=== PATIENT | female | born 1975 | race Caucasian/White ===

== ENCOUNTER 2017-04-08 11:03 | Inpatient (IN) ==
--- NOTE | 2017-04-08 08:49 | Anesthesia Evaluation PreOp ---
Date of Encounter: 04/08/17 Time of Encounter: 11:43 - Past History Planned Operation: Open hiatal hernia repair Rona Cardiac History: Arrhythmia (Palpitations) Pulmonary History: Smoker [employer] History: Denies Any Significant HX Other Medical History: Other (Hiatal hernia, Bipolar disorder, ITP, post splenectomy, thrombocytosis) Anesthesia History: No Prior Anesthetic Complications, Past Anesthesia Alcohol Use: none Drug use: none Medications and Allergies Omeprazole [PriLOSEC] 20 mg PO DAILY #30 cap 02/28/17 [Rx] Buspirone HCl [Buspar] 30 mg PO DAILY 03/22/17 [History] Ibuprofen [Motrin] 200 mg PO Q4HR PRN 03/22/17 [History] [place] Carbonate 600 mg PO BID 03/22/17 [History] - Meds/Allergy Pre-op Review Medications Reviewed: Yes Allergies Reviewed: Yes Beta Blockers on Current Med List: No Anesthesia Results - Labs Laboratory Tests 04/06/17 09:12 WBC 17.4 H Hgb 13.7 Hct 41.3 Plt Count 611 H Laboratory Tests 02/28/17 02/28/17 08:41 09:14 PT 10.5 INR 1.0 APTT 25.9 L Sodium 137 Potassium 4.0 BUN 9 Creatinine 0.73 Glucose 95 Calcium 9.8 Albumin 3.5 Globulin 4.0 H Anesthesia Exam Vital Signs/O2 Sat, Most Current Temp Pulse Resp BP Pulse Ox 98.2 F 88 18 125/82 96 04/08/17 11:31 04/08/17 11:31 04/08/17 11:31 04/08/17 11:31 04/08/17 11:31 Height: 5'2" Weight: 80 Kg BMI:32 NPO (# of Hours): >8 - HEENT Mallampati: II Teeth: Missing, Poor dentition Oral Opening: Greater than 3 - Cardiac Rhythm: Regular - Pulmonary Breath Sounds: bilateral Rhonchi Anesthesia Assess/Plan ASA Score: 3 Modified [place] Scale for Level of Consciousness: Anixous, agitated or restless Anesthetic Plan: General Monitoring Plan: Standard Monitors, CVC (Possible) Recovery Plan: PACU Anes Supervising Prov Stmt: I have participated in the evaluation of this patient. Patient informed and consented. Risks, benefits, and alternatives discussed. Patient wishes to proceed.
[2017-04-08] MEDS ORDERED: Scopolamine Patch 1.5 MG PATCH.TD72 TD ONE (11:49)
--- NOTE | 2017-04-08 11:52 | History & Physical Report ---
Date of Encounter: 04/08/17 Time of Encounter: 11:50 24 Hour HP Update - Instructions Instructions: If the History and Physical is less than 30 days old and was completed prior to A.M. admission and or procedure and has NOT been updated on calendar day of procedure please complete this update prior to performing procedure. - Update Patient reports changes in Medical Condition: No Changes in examination, assessment, or condition: No Changes in Medication: No Preop tests/diagnostics Reviewed: Yes Surgery Remains Indicated: Yes Consent for Planned Operative Procedure(s) Verified: Yes - Pre-Operative Checklist Preoperative Checklist Indicated: Yes Prophylactic Antibiotic Ordered: Yes Home Medications Include Beta Ronal: No Is VTE Prophylaxis Indicated?: Yes
[2017-04-08] MEDS ORDERED: Albuterol 2.5 MG/3 ML NEBULIZER IH ONE (11:57)
[2017-04-08] MEDS ORDERED: Lidocaine -MPF 1% 2 ML VIAL ID ONE (11:57)
[2017-04-08] MEDS ORDERED: CeFAZolin Syr 2,000MG/20 ML 2,000 MG/20 ML SYRINGE IVPB ONE (11:57)
[2017-04-08] MEDS ORDERED: *HR* Rocuronium Bromide 50 MG/5 ML VIAL ONE (12:00)
[2017-04-08] MEDS ORDERED: *HR* Propofol 200 MG/20 ML VIAL IVP ONE (12:00)
[2017-04-08] MEDS ORDERED: Dexamethasone 4 MG/ML VIAL ONE (12:00)
[2017-04-08] MEDS ORDERED: *HR* Midazolam HCl 2 MG/2 ML VIAL ONE (12:00)
[2017-04-08] MEDS ORDERED: *HR* Succinylcholine 200 MG/10 ML VIAL IVP ONE (12:00)
[2017-04-08] MEDS ORDERED: Lidocaine -MPF 4% 5 ML AMPUL ONE (12:00)
[2017-04-08] MEDS ORDERED: Lidocaine -MPF 2% 2 ML VIAL ONE (12:00)
[2017-04-08] MEDS ORDERED: Ondansetron 4 MG/2 ML VIAL ONE (12:00)
[2017-04-08] MEDS ORDERED: *HR* Phenylephrine 10 MG/ML VIAL ONE (12:00)
[2017-04-08] MEDS ORDERED: *HR* FentaNYL (PF) 100 MCG/2 ML VIAL ONE ×3 (12:00→13:37)
[2017-04-08] MEDS ORDERED: Albuterol 2.5 MG/3 ML NEBULIZER ONE (12:03)
[2017-04-08] MEDS ORDERED: CefOXitin 1,000 MG VIAL ONE (12:05)
[2017-04-08] MEDS: Ringers Solution, Lactated 1,000 ML IVC SCH ×2 (12:48→14:12)
[2017-04-08] MEDS ORDERED: *HR* HYDROmorphone 2 MG/ML SYRINGE ONE (13:28)
[2017-04-08] MEDS ORDERED: Acetaminophen IV 1,000 MG/100 ML INFUS..BTL ONE (14:07)
[2017-04-08] MEDS ORDERED: Neostigmine Methylsulfate 3 MG/3 ML SYRINGE ONE (14:35)
[2017-04-08] MEDS ORDERED: Ketorolac 30 MG/ML VIAL ONE (14:38)
[2017-04-08] MEDS ORDERED: Bupivacaine/EPI 1:200k 0.5%PF 10 ML VIAL ONE (14:43)
--- NOTE | 2017-04-08 15:13 | Operative Note ---
Date of procedure: 04/08/17 Pre-op diagnosis: Hiatal hernia, status post splenectomy Post-op diagnosis: same Procedure: Open repair of hiatal hernia. Open Rona fundoplication. Anesthesia: LADARIUS Surgeon: Zane Canchola Estimated blood loss (cc): 50 Specimen: None Condition: stable Disposition: PACU Procedure in Detail: After informed consent the patient is taken to the major operative suite and placed in supine position and given adequate general anesthetic. The abdomen was prepped and draped in sterile fashion utilizing ChloraPrep standard draping techniques. A timeout was taken patient was identified. I made a left subcostal incision through her old scar and extended this into the right subcostal area as a bucket handle. The abdomen was entered. There was scar tissue in the left upper quadrant. There was a small accessory spleen perhaps 3 cm x 2 cm in size the scar tissue was lysed. I mobilized the lateral segment of the left lobe of the liver and visualize the hiatus. The stomach was reduced into the abdominal cavity. There was good deal of scar tissue covering the cardia of the stomach. This was all divided. The hernia sac was divided. Using a lighted bougie I dissected around the esophagus and identified the right and left luis of the diaphragm. I performed repair of hiatal hernia with 3 stitches of 2-0 Ethibond with pledgets. I completely mobilized the cardia and brought this into a retro-gastroesophageal orientation area I then completed the fundoplication. I confirmed there is no tension with a drop test and a shoeshine test. The fundoplication was created with 3 stitches of 2-0 Ethibond with pledgets. The wrap was performed around a 56-Yi bougie. 2 shoulder stitches were placed to the diaphragm. Total blood loss was 50 mL. The abdomen was irrigated with copious amounts of antibiotic containing solution. Total time for lysis of adhesions was 45 minutes. The abdomen was closed with looped 0 PDS in 2 layers. The skin was closed with interrupted skin clips and Vicryl. She tolerated the procedure well.
[2017-04-08] MEDS ORDERED: *HR* HYDROmorphone (PF) 1 MG/ML SYRINGE IVP PRN (15:19)
[2017-04-08] MEDS ORDERED: Ondansetron 4 MG/2 ML VIAL IVP PRN (15:19)
[2017-04-08] MEDS ORDERED: *HR* HYDROmorphone (PF) 1 MG/ML SYRINGE ONE (15:28)
[2017-04-08] MEDS: *HR* HYDROmorphone (PF) 1 MG/ML SYRINGE IVP PRN ×6 (15:30→22:19)
[2017-04-08] MEDS ORDERED: 0.9 % Sodium Chloride 1,000 ML IVC SCH (15:30)
[2017-04-08] MEDS ORDERED: CeFAZolin Syr 2,000MG/20 ML 2,000 MG/20 ML SYRINGE IVPB SCH (16:00)
--- NOTE | 2017-04-08 16:24 | Anesthesia Evaluation Post Op ---
Date of Encounter: 04/08/17 Time of Encounter: 16:20 - Vital Signs Vital Signs: Vital Signs/O2 Sat, Most Current Temp Pulse Resp BP Pulse Ox 98.0 F 99 16 129/71 94 04/08/17 15:45 04/08/17 15:55 04/08/17 15:55 04/08/17 15:55 04/08/17 15:55 - Lungs Lungs: Clear Ascult./Percussion - Airway Airway: Non-obstructed - Cardiovascular Regular Rate - Mental Status Mental Status: Asleep with brisk response to light stimulation - Pain Pain Scale: 6 Pain Scale used: Numeric (1 - 10) - Nausea Vomiting Nausea Vomiting: Not Present - Hydration Hydration: Ice chips, Has not voided - Discharge PostOp Status: Transfer Patient to floor
[2017-04-08] MEDS: 0.9 % Sodium Chloride 1,000 ML IVC SCH (17:30)
[2017-04-08] MEDS ORDERED: *HR* Heparin 5,000 UNIT/ML VIAL SQ SCH (18:00)
[2017-04-08] MEDS: Ondansetron 4 MG/2 ML VIAL IVP PRN (18:30)
[2017-04-08] MEDS: Lithium Carbonate 300 MG CAPSULE PO SCH (22:13)
[2017-04-09] MEDS: Ondansetron 4 MG/2 ML VIAL IVP PRN ×5 (00:06→22:30)
[2017-04-09] MEDS: ceFAZolin 2,000 MG in D5% in Water 100 ML IVPB SCH ×2 (00:08→18:48)
[2017-04-09] MEDS: *HR* HYDROmorphone (PF) 1 MG/ML SYRINGE IVP PRN ×11 (00:20→22:30)
[2017-04-09 04:36] LABS: Basophils # 0.1 K/mcL (0.0-0.2); Basophils % 0.3 %; Eosinophils # 0.1 K/mcL (0.0-0.6); Eosinophils % 0.3 %; Hematocrit 35.4 % (35.3-44.9); Immature Granulocytes % 0.6 % (0-4); Lymphocytes # 1.6 K/mcL (0.6-4.6); Lymphocytes % 7.7 %; Mean Corpuscular HGB Conc 33.1 g/dL (31.6-35.5); Mean Corpuscular Hemoglobin 31.8 pg (28.0-33.3); Mean Corpuscular Volume 96.2 fL (83.0-100.0); Mean Platelet Volume 8.1 fL (9.4-12.4); Monocytes # 1.1 K/mcL (0.0-1.3); Monocytes % 5.3 %; Neutrophils # 17.8 K/mcL (1.6-8.9); Platelet Count 499 K/mcL (140-400); Red Blood Count 3.68 M/mcL (3.82-4.97); Red Cell Distribution Width 13.2 % (11.5-14.5); Segmented Neutrophils % 85.8 %
[2017-04-09 04:39] LABS: Hemoglobin 11.7 g/dL (11.5-15.4)
[2017-04-09 04:46] LABS: BUN/Creatinine Ratio 11 (6-26); Blood Urea Nitrogen 8 mg/dL (7-20); Calcium 8.6 mg/dL (8.6-10.8); Carbon Dioxide 27 mEq/L (19-29); Chloride 103 mEq/L (98-109); Glucose 139 mg/dL (70-99); Osmolality,Calculated 281 (280-300); Potassium 4.1 mEq/L (3.5-4.5); Sodium 135 mEq/L (136-145); eGFR For African Americans > 60 (> 60); eGFR For Non-African Americans > 60 (> 60)
[2017-04-09] MEDS: Lithium Carbonate 300 MG CAPSULE PO SCH ×2 (09:40→20:44)
[2017-04-09] MEDS: 0.9 % Sodium Chloride 1,000 ML IVC SCH ×2 (09:41→22:29)
--- NOTE | 2017-04-09 17:17 | General Surgery Progress Note ---
<Winston Snyder - Last Filed: 04/09/17 17:36> Date of Encounter: 04/09/17 Time of Encounter: 15:15 - Assessment and Plan (1) Status post hernia repair Current Visit: Yes Status: Acute Patient is experiencing some abdominal pain since her hernia repair. Her pain is mainly located on the left side of her abdomen. Incision site currently wrapped; no blood or drainage noted. Plan: -Cefazolin 2 g every 8 hours -Dilaudid 1 mg every. -Prilosec 20 mg daily. -Zofran 4 mg every 4 hours. -Clear liquid diet. -Incentive spirometry. Subjective Patient reports: still having pain Narrative: Patient was seen and examined at bedside this afternoon. She states that she is still having abdominal pain, primarily on the left side. She also notes that she has been feeling nauseous. The antiemetic medication that she was given only seems to work for a few hours. She currently denies any fever or chills. No new pain complaints outside of her abdomen. Objective Vital Signs - Last 8 Hours Temp Pulse Resp BP Pulse Ox 04/09/17 15:39 98.2 F 98 16 124/82 90 Intake and Output 04/09/17 04/09/17 04/09/17 07:59 15:59 23:59 Intake Total 1520 / 1520 Output Total 0 / 0 Balance 1520 / 1520 Intake: IV Fluids 1100 / 1100 0.9 % Sodium Chloride 1,000 ML 1000 / 1000 @ 75 mls/hr IVC .[id number] [facility] Rx #:[id number] Ancef 2,000 MG In Dextrose 5% 100 / 100 100 ML @ 200 mls/hr IVPB Q8HR [facility] Rx#:[id number] Oral 420 / 420 Output: Urine 0 / 0 Other: # Voids 1 2 - General physical appearance well developed, well nourished - Neck Neck exam: no masses, trachea midline, no lymphadectomy - Respiratory normal expansion, normal respiratory effort, clear to auscultation - Cardiovascular Cardiovascular exam: Present: RRR, no murmurs/rubs/gallops - Abdomen Abdomen: Present: tender Abdominal Tenderness: LUQ, LLQ - Labs 04/09/17 04:30 04/09/17 04:30 Diabetes panel 04/09/17 Range/Units 04:30 Sodium 135 L (136-145) mEq/L Potassium 4.1 (3.5-4.5) mEq/L Chloride 103 (98-109) mEq/L Carbon Dioxide 27 (19-29) mEq/L BUN 8 (7-20) mg/dL Creatinine 0.71 (0.57-1.11) mg/dL Glucose 139 H (70-99) mg/dL Calcium 8.6 (8.6-10.8) mg/dL Calcium panel 04/09/17 Range/Units 04:30 Calcium 8.6 (8.6-10.8) mg/dL Pituitary panel 04/09/17 Range/Units 04:30 Sodium 135 L (136-145) mEq/L Potassium 4.1 (3.5-4.5) mEq/L Chloride 103 (98-109) mEq/L Carbon Dioxide 27 (19-29) mEq/L BUN 8 (7-20) mg/dL Creatinine 0.71 (0.57-1.11) mg/dL Glucose 139 H (70-99) mg/dL Calcium 8.6 (8.6-10.8) mg/dL Adrenal panel 04/09/17 Range/Units 04:30 Sodium 135 L (136-145) mEq/L Potassium 4.1 (3.5-4.5) mEq/L Chloride 103 (98-109) mEq/L Carbon Dioxide 27 (19-29) mEq/L BUN 8 (7-20) mg/dL Creatinine 0.71 (0.57-1.11) mg/dL Glucose 139 H (70-99) mg/dL Calcium 8.6 (8.6-10.8) mg/dL - VTE Documentation of Mechanical Device: Intermittent pneumatic compression device Consult Discharge Plan - Plan Referrals: Zane Canchola MD [Partnered Physician] - 04/19/17 9:45 am <Zane Canchola - Last Filed: 04/10/17 10:18> Date of Encounter: 04/09/17 Objective Vital Signs - Last 8 Hours Temp Pulse Resp BP Pulse Ox 04/10/17 07:53 97.9 F 95 16 105/68 96 04/10/17 03:35 97.6 F 98 14 117/76 92 Intake and Output 04/09/17 04/10/17 04/10/17 23:59 07:59 15:59 Intake Total 1000 / 1000 240 / 240 Output Total 0 / 0 Balance 1000 / 1000 240 / 240 Intake: IV Fluids 1000 / 1000 0.9 % Sodium Chloride 1,000 ML 1000 / 1000 @ 75 mls/hr IVC .[id number] [facility] Rx #:[id number] Oral 240 / 240 Output: Urine 0 / 0 Other: # Voids 1 Weight 80.15 kg Patient Weight 04/10/17 23:59 Weight 80.15 kg - Labs 04/10/17 08:16 04/10/17 08:16 Diabetes panel 04/10/17 Range/Units 08:16 Sodium 135 L (136-145) mEq/L Potassium 3.5 (3.5-4.5) mEq/L Chloride 104 (98-109) mEq/L Carbon Dioxide 23 (19-29) mEq/L BUN 4 L (7-20) mg/dL Creatinine 0.63 (0.57-1.11) mg/dL Glucose 104 H (70-99) mg/dL Calcium 8.5 L (8.6-10.8) mg/dL Calcium panel 04/10/17 Range/Units 08:16 Calcium 8.5 L (8.6-10.8) mg/dL Pituitary panel 04/10/17 Range/Units 08:16 Sodium 135 L (136-145) mEq/L Potassium 3.5 (3.5-4.5) mEq/L Chloride 104 (98-109) mEq/L Carbon Dioxide 23 (19-29) mEq/L BUN 4 L (7-20) mg/dL Creatinine 0.63 (0.57-1.11) mg/dL Glucose 104 H (70-99) mg/dL Calcium 8.5 L (8.6-10.8) mg/dL Adrenal panel 04/10/17 Range/Units 08:16 Sodium 135 L (136-145) mEq/L Potassium 3.5 (3.5-4.5) mEq/L Chloride 104 (98-109) mEq/L Carbon Dioxide 23 (19-29) mEq/L BUN 4 L (7-20) mg/dL Creatinine 0.63 (0.57-1.11) mg/dL Glucose 104 H (70-99) mg/dL Calcium 8.5 L (8.6-10.8) mg/dL - Attending Attestation I examined this patient and my medical decision-making was reviewed with the Resident Physician. I agree with the documented findings, disposition and treatment plan as described except to the extent set forth below. The patient is seen and evaluated on morning rounds. The patient is experiencing postoperative pain out of proportion with what patients normally experience. She is also experiencing acute nicotine withdrawal. Her lung sounds are decreased secondary to splinting. We will encourage incentive from her and continue to provide appropriate pain management. Zane Canchola MD FACS
[2017-04-10] MEDS: *HR* OxyCODONE/APAP 5/325 TABLET PO PRN ×4 (00:39→20:46)
[2017-04-10] MEDS: *HR* HYDROmorphone (PF) 1 MG/ML SYRINGE IVP PRN ×7 (01:43→22:24)
[2017-04-10] MEDS: Lithium Carbonate 300 MG CAPSULE PO SCH ×2 (07:53→20:46)
[2017-04-10 08:26] LABS: Hematocrit 34.3 % (35.3-44.9); Hemoglobin 11.5 g/dL (11.5-15.4); Mean Corpuscular HGB Conc 33.5 g/dL (31.6-35.5); Mean Corpuscular Hemoglobin 31.6 pg (28.0-33.3); Mean Corpuscular Volume 94.2 fL (83.0-100.0); Mean Platelet Volume 8.3 fL (9.4-12.4); Platelet Count 489 K/mcL (140-400); Red Blood Count 3.64 M/mcL (3.82-4.97); Red Cell Distribution Width 13.1 % (11.5-14.5)
[2017-04-10 08:41] LABS: BUN/Creatinine Ratio 6 (6-26); Blood Urea Nitrogen 4 mg/dL (7-20); Calcium 8.5 mg/dL (8.6-10.8); Carbon Dioxide 23 mEq/L (19-29); Chloride 104 mEq/L (98-109); Glucose 104 mg/dL (70-99); Osmolality,Calculated 277 (280-300); Potassium 3.5 mEq/L (3.5-4.5); Sodium 135 mEq/L (136-145); eGFR For African Americans > 60 (> 60); eGFR For Non-African Americans > 60 (> 60)
[2017-04-10] MEDS ORDERED: *HR* HYDROmorphone 2 MG/ML SYRINGE IVP ONE (09:23)
[2017-04-10] MEDS: Albuterol 2.5 MG/3 ML NEBULIZER IH SCH ×3 (11:00→22:45)
--- NOTE | 2017-04-10 11:19 | General Surgery Progress Note ---
<Winston Snyder - Last Filed: 04/10/17 11:29> Date of Encounter: 04/10/17 Time of Encounter: 10:30 - Assessment and Plan (1) Status post hernia repair Current Visit: Yes Status: Acute Patient is experiencing some abdominal pain since her hernia repair. Her pain is mainly located on the left side of her abdomen. Incision site currently wrapped; no blood or drainage noted. Plan: -Dilaudid 1 mg Q1hr PRN. -Prilosec 20 mg daily. -Zofran 4 mg every 4 hours. -Clear liquid diet. -Incentive spirometry. Patient reported today that her regular medication for pain control was only mildly effective. She was given a one time dose of Dilaudid 2mg IV. (2) Difficulty breathing Current Visit: Yes Status: Acute Patient reported this morning that she felt difficulty in getting air into her lungs. She reported an increase in respiratory effort. Patient was not short of breath at the time of examination, and did not appear to be in acute distress. -Albuterol QID. -Continue 2L oxygen via nasal cannula. -Resp. therapy 3 times daily Subjective Patient reports: still having pain, pain is less Narrative: Patient was seen and examined at bedside this morning. She reports that she is still having abdominal pain, particularly in the upper abdomen. She also complained of difficulty breathing, feeling as though she was not able to properly get air into her lungs. She denies having any pain on inspiration. Currently does not appear to be in respiratory distress. Denies nausea, vomiting, fever, chills. Objective Vital Signs - Last 8 Hours Temp Pulse Resp BP Pulse Ox 04/10/17 07:53 97.9 F 95 16 105/68 96 04/10/17 03:35 97.6 F 98 14 117/76 92 Intake and Output 04/09/17 04/10/17 04/10/17 23:59 07:59 15:59 Intake Total 1000 / 1000 240 / 240 Output Total 0 / 0 Balance 1000 / 1000 240 / 240 Intake: IV Fluids 1000 / 1000 0.9 % Sodium Chloride 1,000 ML 1000 / 1000 @ 75 mls/hr IVC .[id number] [facility] Rx #:[id number] Oral 240 / 240 Output: Urine 0 / 0 Other: # Voids 1 Weight 80.15 kg Patient Weight 04/10/17 23:59 Weight 80.15 kg - General physical appearance well developed, well nourished - Respiratory normal expansion - Cardiovascular Cardiovascular exam: Present: RRR, no murmurs/rubs/gallops - Abdomen Abdomen: Present: bowel sounds present, soft, tender Abdominal Tenderness: diffusely - Psychiatric oriented to time, oriented to person, oriented to place, speech is normal - Labs 04/10/17 08:16 04/10/17 08:16 Diabetes panel 04/10/17 Range/Units 08:16 Sodium 135 L (136-145) mEq/L Potassium 3.5 (3.5-4.5) mEq/L Chloride 104 (98-109) mEq/L Carbon Dioxide 23 (19-29) mEq/L BUN 4 L (7-20) mg/dL Creatinine 0.63 (0.57-1.11) mg/dL Glucose 104 H (70-99) mg/dL Calcium 8.5 L (8.6-10.8) mg/dL Calcium panel 04/10/17 Range/Units 08:16 Calcium 8.5 L (8.6-10.8) mg/dL Pituitary panel 04/10/17 Range/Units 08:16 Sodium 135 L (136-145) mEq/L Potassium 3.5 (3.5-4.5) mEq/L Chloride 104 (98-109) mEq/L Carbon Dioxide 23 (19-29) mEq/L BUN 4 L (7-20) mg/dL Creatinine 0.63 (0.57-1.11) mg/dL Glucose 104 H (70-99) mg/dL Calcium 8.5 L (8.6-10.8) mg/dL Adrenal panel 04/10/17 Range/Units 08:16 Sodium 135 L (136-145) mEq/L Potassium 3.5 (3.5-4.5) mEq/L Chloride 104 (98-109) mEq/L Carbon Dioxide 23 (19-29) mEq/L BUN 4 L (7-20) mg/dL Creatinine 0.63 (0.57-1.11) mg/dL Glucose 104 H (70-99) mg/dL Calcium 8.5 L (8.6-10.8) mg/dL - VTE Documentation of Mechanical Device: Intermittent pneumatic compression device Consult Discharge Plan - Plan Referrals: Zane Canchola MD [Partnered Physician] - 04/19/17 9:45 am <Zane Canchola - Last Filed: 04/10/17 14:36> Date of Encounter: 04/10/17 Objective Vital Signs - Last 8 Hours Temp Pulse Resp BP Pulse Ox 04/10/17 11:50 98.1 F 90 18 119/75 94 04/10/17 11:00 20 90 04/10/17 07:53 97.9 F 95 16 105/68 96 Intake and Output 04/09/17 04/10/17 04/10/17 23:59 07:59 15:59 Intake Total 1000 / 1000 240 / 240 360 / 360 Output Total 0 / 0 0 / 0 Balance 1000 / 1000 240 / 240 360 / 360 Intake: IV Fluids 1000 / 1000 0.9 % Sodium Chloride 1,000 ML 1000 / 1000 @ 75 mls/hr IVC .[id number] [facility] Rx #:[id number] Oral 240 / 240 360 / 360 Output: Urine 0 / 0 0 / 0 Other: # Voids 1 Weight 80.15 kg Patient Weight 04/10/17 23:59 Weight 80.15 kg - Labs 04/10/17 08:16 04/10/17 08:16 Diabetes panel 04/10/17 Range/Units 08:16 Sodium 135 L (136-145) mEq/L Potassium 3.5 (3.5-4.5) mEq/L Chloride 104 (98-109) mEq/L Carbon Dioxide 23 (19-29) mEq/L BUN 4 L (7-20) mg/dL Creatinine 0.63 (0.57-1.11) mg/dL Glucose 104 H (70-99) mg/dL Calcium 8.5 L (8.6-10.8) mg/dL Calcium panel 04/10/17 Range/Units 08:16 Calcium 8.5 L (8.6-10.8) mg/dL Pituitary panel 04/10/17 Range/Units 08:16 Sodium 135 L (136-145) mEq/L Potassium 3.5 (3.5-4.5) mEq/L Chloride 104 (98-109) mEq/L Carbon Dioxide 23 (19-29) mEq/L BUN 4 L (7-20) mg/dL Creatinine 0.63 (0.57-1.11) mg/dL Glucose 104 H (70-99) mg/dL Calcium 8.5 L (8.6-10.8) mg/dL Adrenal panel 04/10/17 Range/Units 08:16 Sodium 135 L (136-145) mEq/L Potassium 3.5 (3.5-4.5) mEq/L Chloride 104 (98-109) mEq/L Carbon Dioxide 23 (19-29) mEq/L BUN 4 L (7-20) mg/dL Creatinine 0.63 (0.57-1.11) mg/dL Glucose 104 H (70-99) mg/dL Calcium 8.5 L (8.6-10.8) mg/dL - Attending Attestation I examined this patient and my medical decision-making was reviewed with the Resident Physician. I agree with the documented findings, disposition and treatment plan as described except to the extent set forth below. The patient is seen and evaluated on morning rounds with the resident. She continues to have postoperative pain much more prominent than expected. She is having difficulty clearing her lungs. She quit smoking only 2 days ago. We will start her on albuterol nebulizer treatments and I will have respiratory therapy assist her with incentive spirometer. I am going to increase her narcotic pain medicine for several short bursts to try and break the pain cycle. We will continue supportive care. She is tolerating clear liquid diet. Her reflux is gone. Her dysphagia is gone. Zane Canchola MD FACS
[2017-04-10] MEDS: Nicotine 21 MG PATCH.TD24 TD SCH (14:12)
[2017-04-10] MEDS ORDERED: Acetaminophen 325 MG TABLET PO PRN (15:17)
[2017-04-10] MEDS: 0.9 % Sodium Chloride 1,000 ML IVC SCH (16:53)
[2017-04-10 17:56] LABS: Hematocrit 34.6 % (35.3-44.9); Hemoglobin 11.6 g/dL (11.5-15.4); Mean Corpuscular HGB Conc 33.5 g/dL (31.6-35.5); Mean Corpuscular Hemoglobin 31.7 pg (28.0-33.3); Mean Corpuscular Volume 94.5 fL (83.0-100.0); Platelet Count 473 K/mcL (140-400); Red Blood Count 3.66 M/mcL (3.82-4.97); Red Cell Distribution Width 13.2 % (11.5-14.5)
[2017-04-10 18:03] LABS: BUN/Creatinine Ratio 5 (6-26); Calcium 8.6 mg/dL (8.6-10.8); Carbon Dioxide 23 mEq/L (19-29); Chloride 105 mEq/L (98-109); Glucose 127 mg/dL (70-99); Osmolality,Calculated 282 (280-300); Potassium 3.2 mEq/L (3.5-4.5); Sodium 137 mEq/L (136-145); eGFR For African Americans > 60 (> 60); eGFR For Non-African Americans > 60 (> 60)
[2017-04-10 18:07] LABS: Blood Urea Nitrogen 3 mg/dL (7-20)
[2017-04-11] MEDS: *HR* HYDROmorphone (PF) 1 MG/ML SYRINGE IVP PRN ×8 (01:24→23:28)
[2017-04-11] MEDS: 0.9 % Sodium Chloride 1,000 ML IVC SCH ×2 (01:25→13:22)
[2017-04-11] MEDS: *HR* OxyCODONE/APAP 5/325 TABLET PO PRN ×4 (03:03→21:54)
[2017-04-11] MEDS: Albuterol 2.5 MG/3 ML NEBULIZER IH SCH ×4 (03:44→21:56)
[2017-04-11] MEDS: Lithium Carbonate 300 MG CAPSULE PO SCH ×2 (08:51→20:21)
[2017-04-11] MEDS: Nicotine 21 MG PATCH.TD24 TD SCH (08:52)
--- NOTE | 2017-04-11 10:49 | General Surgery Progress Note ---
<Beth Stevens - Last Filed: 04/11/17 11:23> Date of Encounter: 04/11/17 Time of Encounter: 10:48 - Assessment and Plan (1) Status post Rona fundoplication Current Visit: Yes Status: Acute S/P Open hiatal hernia repair and Rona fundoplication 04/[address] Canchola patient with episodes of hypoxia and dysphasia over the weekend but those have not resolved. She is tolerating clear/thin liquid diet. Her incisions are clean, dry, and intact. There is some abdominal distention noted however she reports significant flatus over the last 24 hours; abdominal exam is otherwise unremarkable. Plan: 1. Continued discomfort management and supportive care. 2. G.I. prophylaxis 3. Add Toradol scheduled 4. Add stool softener twice daily 5. Add Reglan 6. Increase activity, walk-in halls at least 3 times daily and out of bed to chair for all meal 7. Continue clear/thin liquid diet. No carbonation. Add Ensure clear TID with trays. 8. Decrease fluids to KVO 9. Replace electrolytes as indicated. Repeat a.m. labs. (2) Status post hernia repair Current Visit: Yes Status: Acute See above (3) Hypokalemia Current Visit: Yes Status: Acute Potassium 3.2 today. Will replace with 40 MEQ IV. Recheck a.m. labs (4) GERD (gastroesophageal reflux disease) Current Visit: Yes Status: Acute Protonix 40 mg BID IV push Qualifiers: Esophagitis presence: esophagitis presence not specified Qualified Code(s) : K21.9 - Gastro-esophageal reflux disease without esophagitis (5) DVT prophylaxis Current Visit: Yes Status: Acute Heparin 5000 units sub Q injection twice daily ambulate and halls at least TID EPCDs when in bed Subjective Patient reports: no new complaints, feels better, still having pain, pain is less, tolerating liquids well, voiding w/o difficulty, flatus, no bowel movement , afebrile Narrative: Denies nausea; states some feeling of "gagging." Objective Vital Signs - Last 8 Hours Temp Pulse Resp BP Pulse Ox 04/11/17 10:20 97.7 F 82 16 118/84 95 04/11/17 07:37 98.1 F 78 16 124/86 94 04/11/17 03:42 98.0 F 92 14 127/84 91 Intake and Output 04/10/17 04/11/17 04/11/17 23:59 07:59 15:59 Intake Total 0 / 0 1360 / 1360 480 / 480 Output Total 0 / 0 0 / 0 0 / 0 Balance 0 / 0 1360 / 1360 480 / 480 Intake: IV Fluids 1000 / 1000 0.9 % Sodium Chloride 1,000 ML 1000 / 1000 @ 75 mls/hr IVC .[id number] [facility] Rx #:[id number] Oral 0 / 0 360 / 360 480 / 480 Output: Urine 0 / 0 0 / 0 0 / 0 Other: Meal Clear Percent of Meal Consumed 20% 0% # Voids 2 # Bowel Movements 0 Weight 79.832 kg Patient Weight 04/11/17 23:59 Weight 79.832 kg - General physical appearance no distress, moderate pain - Eyes normal ocular movement - ENT atraumatic, normocephalic, CN 2-12 grossly intact - Neck Neck exam: no venous distension - Respiratory normal expansion, normal respiratory effort, clear to auscultation - Cardiovascular Cardiovascular exam: Present: RRR - Abdomen Abdomen: Present: bowel sounds present, soft, tender (Expected postoperative) Hernia: none - Incision Incision: Present: clean and dry, intact - Integumentary no rash, no growths - Neurologic CN 2-12 grossly intact, normal coordination, normal sensation - Musculoskeletal normal gait, normal posture - Psychiatric oriented to time, oriented to person, oriented to place, speech is normal, memory intact - Labs 04/10/17 17:08 04/10/17 17:08 Diabetes panel 04/10/17 Range/Units 17:08 Sodium 137 (136-145) mEq/L Potassium 3.2 L (3.5-4.5) mEq/L Chloride 105 (98-109) mEq/L Carbon Dioxide 23 (19-29) mEq/L BUN 3 L (7-20) mg/dL Creatinine 0.64 (0.57-1.11) mg/dL Glucose 127 H (70-99) mg/dL Calcium 8.6 (8.6-10.8) mg/dL Calcium panel 04/10/17 Range/Units 17:08 Calcium 8.6 (8.6-10.8) mg/dL Pituitary panel 04/10/17 Range/Units 17:08 Sodium 137 (136-145) mEq/L Potassium 3.2 L (3.5-4.5) mEq/L Chloride 105 (98-109) mEq/L Carbon Dioxide 23 (19-29) mEq/L BUN 3 L (7-20) mg/dL Creatinine 0.64 (0.57-1.11) mg/dL Glucose 127 H (70-99) mg/dL Calcium 8.6 (8.6-10.8) mg/dL Adrenal panel 04/10/17 Range/Units 17:08 Sodium 137 (136-145) mEq/L Potassium 3.2 L (3.5-4.5) mEq/L Chloride 105 (98-109) mEq/L Carbon Dioxide 23 (19-29) mEq/L BUN 3 L (7-20) mg/dL Creatinine 0.64 (0.57-1.11) mg/dL Glucose 127 H (70-99) mg/dL Calcium 8.6 (8.6-10.8) mg/dL - VTE Documentation of Mechanical Device: Intermittent pneumatic compression device Consult Discharge Plan - Plan Referrals: Zane Canchola MD [Partnered Physician] - 04/19/17 9:45 am <Zane Canchola - Last Filed: 04/12/17 08:27> Date of Encounter: 04/11/17 Objective Vital Signs - Last 8 Hours Temp Pulse Resp BP Pulse Ox 04/12/17 06:00 98 F 79 16 127/86 91 04/12/17 03:33 20 92 Intake and Output 04/11/17 04/12/17 04/12/17 23:59 07:59 15:59 Intake Total 932 / 932 1000 / 1000 Balance 932 / 932 1000 / 1000 Intake: IV Fluids 572 / 572 1000 / 1000 0.9 % Sodium Chloride 1,000 ML 1000 / 1000 @ 50 mls/hr IVC .[id number] [facility] Rx#: [id number] Ofirmev 1,000 mg/100 ml 500 mg 50 / 50 In 50 ml @ 200 mls/hr IVPB ONCE ONE Rx#:[id number] KCl 40 MEQ Xylocaine 2 ML In 522 / 522 Dextrose 5% 500 ML @ 130.5 mls/ hr IVPB ONCE ONE Rx#:[id number] Oral 360 / 360 Other: Meal Dinner - Labs 04/12/17 06:14 10/31/17 06:14 Diabetes panel 04/12/17 Range/Units 06:14 Sodium 140 (136-145) mEq/L Potassium 3.7 (3.5-4.5) mEq/L Chloride 110 H (98-109) mEq/L Carbon Dioxide 21 (19-29) mEq/L BUN 2 L (7-20) mg/dL Creatinine 0.57 (0.57-1.11) mg/dL Glucose 98 (70-99) mg/dL Calcium 8.5 L (8.6-10.8) mg/dL Calcium panel 04/12/17 Range/Units 06:14 Calcium 8.5 L (8.6-10.8) mg/dL Pituitary panel 04/12/17 Range/Units 06:14 Sodium 140 (136-145) mEq/L Potassium 3.7 (3.5-4.5) mEq/L Chloride 110 H (98-109) mEq/L Carbon Dioxide 21 (19-29) mEq/L BUN 2 L (7-20) mg/dL Creatinine 0.57 (0.57-1.11) mg/dL Glucose 98 (70-99) mg/dL Calcium 8.5 L (8.6-10.8) mg/dL Adrenal panel 04/12/17 Range/Units 06:14 Sodium 140 (136-145) mEq/L Potassium 3.7 (3.5-4.5) mEq/L Chloride 110 H (98-109) mEq/L Carbon Dioxide 21 (19-29) mEq/L BUN 2 L (7-20) mg/dL Creatinine 0.57 (0.57-1.11) mg/dL Glucose 98 (70-99) mg/dL Calcium 8.5 L (8.6-10.8) mg/dL - Attending Attestation I have personally performed a face to face evaluation on this patient. I have reviewed and agree with the care plan. History and Exam by me shows: The patient is seen and evaluated on morning rounds with the resident. Clinical information is shared with the clinical nurse practitioner. She is doing well after open repair of hiatal hernia. Dysphagia is gone. She is experiencing incisional pain. Which is expected after an open subcostal incision. She is progressing normal. We will transition her to oral pain medicine. Zane Canchola MD FACS
[2017-04-11] MEDS ORDERED: Potassium Chloride 40 MEQ, Lidocaine 1% 2 ML in D5% in Water 500 ML IVPB ONE (10:50)
[2017-04-11] MEDS ORDERED: Acetaminophen IV 500 MG/50 ML INFUS..BTL IVPB ONE (10:58)
[2017-04-11] MEDS: Metoclopramide 10 MG/2 ML VIAL IVP SCH ×3 (13:21→23:35)
[2017-04-11] MEDS: Ketorolac 15 MG/ML VIAL IVP SCH ×3 (13:21→23:35)
--- NOTE | 2017-04-11 16:56 | Electrocardiograph Report ---
[address] [place], [place] [address] Test Date: 2017-04-09 Pat Name: September Fritz Department: 115 Room: 3A63 Gender: F [employer]: [id number] : 1975 Requested By: Zane Canchola Order Number: [id number] Reading MD: Sonia Bullock Measurements Intervals [place] Rate: 75 P: 50 WV: 200 QRS: 24 QRSD: 90 T: 18 QT: 383 QTc: 411 Interpretive Statements SINUS RHYTHM WITH SINUS ARRHYTHMIA Electronically Signed On 04-11-2017 16:55:14 EDT by Sonia Bullock
[2017-04-11] MEDS: *HR* Heparin 5,000 UNIT/ML VIAL SQ SCH (17:08)
[2017-04-11] MEDS: Pantoprazole 40 MG VIAL IVP SCH (17:15)
[2017-04-11] MEDS: Ondansetron 4 MG/2 ML VIAL IVP PRN (22:00)
[2017-04-12] MEDS: *HR* HYDROmorphone (PF) 1 MG/ML SYRINGE IVP PRN ×3 (02:07→08:08)
[2017-04-12] MEDS: Albuterol 2.5 MG/3 ML NEBULIZER IH SCH ×4 (03:33→21:10)
[2017-04-12] MEDS: *HR* Heparin 5,000 UNIT/ML VIAL SQ SCH ×2 (06:20→19:21)
[2017-04-12] MEDS: Pantoprazole 40 MG VIAL IVP SCH ×2 (06:20→18:13)
[2017-04-12] MEDS: *HR* OxyCODONE/APAP 5/325 TABLET PO PRN ×2 (06:21→12:10)
[2017-04-12 06:25] LABS: Basophils # 0.1 K/mcL (0.0-0.2); Basophils % 0.7 %; Eosinophils # 1.2 K/mcL (0.0-0.6); Eosinophils % 7.2 %; Hemoglobin 11.6 g/dL (11.5-15.4); Immature Granulocytes % 0.4 % (0-4); Lymphocytes # 3.3 K/mcL (0.6-4.6); Mean Corpuscular HGB Conc 34.1 g/dL (31.6-35.5); Mean Corpuscular Hemoglobin 31.3 pg (28.0-33.3); Mean Corpuscular Volume 91.6 fL (83.0-100.0); Mean Platelet Volume 8.4 fL (9.4-12.4); Monocytes # 1.5 K/mcL (0.0-1.3); Monocytes % 9.2 %; Neutrophils # 10.2 K/mcL (1.6-8.9); Platelet Count 498 K/mcL (140-400); Red Blood Count 3.71 M/mcL (3.82-4.97); Segmented Neutrophils % 62.5 %
[2017-04-12 06:42] LABS: BUN/Creatinine Ratio 4 (6-26); Blood Urea Nitrogen 2 mg/dL (7-20); Calcium 8.5 mg/dL (8.6-10.8); Carbon Dioxide 21 mEq/L (19-29); Chloride 110 mEq/L (98-109); Glucose 98 mg/dL (70-99); Osmolality,Calculated 286 (280-300); Potassium 3.7 mEq/L (3.5-4.5); Sodium 140 mEq/L (136-145); eGFR For African Americans > 60 (> 60); eGFR For Non-African Americans > 60 (> 60)
[2017-04-12] MEDS: Metoclopramide 10 MG/2 ML VIAL IVP SCH ×3 (06:48→18:13)
[2017-04-12] MEDS: Ketorolac 15 MG/ML VIAL IVP SCH ×3 (06:48→18:13)
[2017-04-12] MEDS: Lithium Carbonate 300 MG CAPSULE PO SCH ×2 (08:07→21:30)
[2017-04-12] MEDS: 0.9 % Sodium Chloride 1,000 ML IVC SCH (08:15)
[2017-04-12] MEDS: Nicotine 21 MG PATCH.TD24 TD SCH (09:22)
[2017-04-12] MEDS ORDERED: *HR* HYDROmorphone (PF) 1 MG/ML SYRINGE IVP PRN (09:54)
[2017-04-12] MEDS ORDERED: Bisacodyl 10 MG RECTAL SUPPOSITORY RC ONE (10:01)
--- NOTE | 2017-04-12 10:10 | General Surgery Progress Note ---
<RodneyBeth Kenyetta - Last Filed: 04/12/17 10:04> Date of Encounter: 04/12/17 Time of Encounter: 09:45 - Assessment and Plan (1) Status post Rona fundoplication Current Visit: Yes Status: Acute S/P Open hiatal hernia repair and Rona fundoplication 04/[address] Canchola. Discussed at length the need for ambulation, out of bed for all meals, decreased PRN pain medication, and IS use. As previously noted, patient with episodes of hypoxia and dysphasia over the weekend but those have resolved. She is tolerating clear/thin liquid diet. Her incisions are clean, dry, and intact. There is some again noted abdominal distention however she continues to reports significant flatus over the last 24 hours, but no BM; abdominal exam is otherwise unremarkable. Plan: 1. Continued discomfort management and supportive care. Increase Percocet to 5/325 mg 2 tablets Q6H; Alternate those with Iv Toradol every 6 hours. Decreased frequency of PRN dilaudid to Q4 hours 2. Continue G.I. prophylaxis 3. Add Miralax daily. Add dulcolax suppository x1 now 4. Continue stool softener twice daily 5. Continue Reglan 6. Increase activity, walk-in halls at least 3 times daily and out of bed to chair for all meal. Discussed at length with pt and RN. 7. Continue clear/thin liquid diet. No carbonation. Add Ensure clear TID with trays. 8. Stop IVF. 9. Replace electrolytes as indicated. WBC is down trending. Repeat am labs (2) Status post hernia repair Current Visit: Yes Status: Acute See above (3) Hypokalemia Current Visit: Yes Status: Acute Resolved today. Repeat am labs (4) GERD (gastroesophageal reflux disease) Current Visit: Yes Status: Acute Protonix 40 mg BID IV push Qualifiers: Esophagitis presence: esophagitis presence not specified Qualified Code(s) : K21.9 - Gastro-esophageal reflux disease without esophagitis (5) DVT prophylaxis Current Visit: Yes Status: Acute Heparin 5000 units sub Q injection twice daily ambulate and halls at least TID EPCDs when in bed Subjective Patient reports: no new complaints, still having pain, pain is less, tolerating liquids well, voiding w/o difficulty, flatus, no bowel movement, afebrile, other (Feels bloated and having increased belching) Objective Vital Signs - Last 8 Hours Temp Pulse Resp BP Pulse Ox 04/12/17 06:00 98 F 79 16 127/86 91 04/12/17 03:33 20 92 Intake and Output 04/11/17 04/12/17 04/12/17 23:59 07:59 15:59 Intake Total 932 / 932 1000 / 1000 Balance 932 / 932 1000 / 1000 Intake: IV Fluids 572 / 572 1000 / 1000 0.9 % Sodium Chloride 1,000 ML 1000 / 1000 @ 50 mls/hr IVC .Q20H SERA Rx#: [id number] Ofirmev 1,000 mg/100 ml 500 mg 50 / 50 In 50 ml @ 200 mls/hr IVPB ONCE ONE Rx#:[id number] KCl 40 MEQ Xylocaine 2 ML In 522 / 522 Dextrose 5% 500 ML @ 130.5 mls/ hr IVPB ONCE ONE Rx#:[id number] Oral 360 / 360 Other: Meal Dinner - General physical appearance no distress, moderate pain - Eyes normal ocular movement - ENT atraumatic, normocephalic - Neck Neck exam: trachea midline, no venous distension - Respiratory other (Decreased respiratory effort. Decreased bilateral lower the breath sounds.) - Cardiovascular Cardiovascular exam: Present: RRR - Abdomen Abdomen: Present: bowel sounds present, soft, distended, tender (Expected postoperative) Hernia: none - Incision Incision: Present: clean and dry, intact - Integumentary no rash, no growths, no abnormal pigmentation - Neurologic CN 2-12 grossly intact, normal coordination - Musculoskeletal normal gait, normal posture - Psychiatric oriented to time, oriented to person, oriented to place, speech is normal, memory intact - Labs 04/12/17 06:14 04/12/17 06:14 Diabetes panel 04/12/17 Range/Units 06:14 Sodium 140 (136-145) mEq/L Potassium 3.7 (3.5-4.5) mEq/L Chloride 110 H (98-109) mEq/L Carbon Dioxide 21 (19-29) mEq/L BUN 2 L (7-20) mg/dL Creatinine 0.57 (0.57-1.11) mg/dL Glucose 98 (70-99) mg/dL Calcium 8.5 L (8.6-10.8) mg/dL Calcium panel 04/12/17 Range/Units 06:14 Calcium 8.5 L (8.6-10.8) mg/dL Pituitary panel 04/12/17 Range/Units 06:14 Sodium 140 (136-145) mEq/L Potassium 3.7 (3.5-4.5) mEq/L Chloride 110 H (98-109) mEq/L Carbon Dioxide 21 (19-29) mEq/L BUN 2 L (7-20) mg/dL Creatinine 0.57 (0.57-1.11) mg/dL Glucose 98 (70-99) mg/dL Calcium 8.5 L (8.6-10.8) mg/dL Adrenal panel 04/12/17 Range/Units 06:14 Sodium 140 (136-145) mEq/L Potassium 3.7 (3.5-4.5) mEq/L Chloride 110 H (98-109) mEq/L Carbon Dioxide 21 (19-29) mEq/L BUN 2 L (7-20) mg/dL Creatinine 0.57 (0.57-1.11) mg/dL Glucose 98 (70-99) mg/dL Calcium 8.5 L (8.6-10.8) mg/dL - VTE Documentation of Mechanical Device: Intermittent pneumatic compression device Consult Discharge Plan - Plan Referrals: Zane Canchola MD [Partnered Physician] - 04/19/17 9:45 am <Zane Canchola - Last Filed: 04/13/17 09:45> Date of Encounter: 04/12/17 Objective Vital Signs - Last 8 Hours Temp Pulse Resp BP Pulse Ox 04/13/17 07:00 97.4 F L 66 16 123/80 90 04/13/17 03:45 97.6 F 75 14 120/81 94 Intake and Output 04/12/17 04/13/17 04/13/17 23:59 07:59 15:59 Intake Total 0 / 0 120 / 120 Output Total 0 / 0 Balance 0 / 0 120 / 120 Intake: Oral 0 / 0 120 / 120 Output: Urine 0 / 0 Other: Meal Dinner Percent of Meal Consumed 80% Stool Size Moderate Stool Consistency loose Stool Color White # Voids 1 2 # Bowel Movements 1 Weight 79.742 kg Patient Weight 04/13/17 23:59 Weight 79.742 kg - Labs 04/13/17 04:31 04/12/17 06:14 - Attending Attestation I have personally performed a face to face evaluation on this patient. I have reviewed and agree with the care plan. History and Exam by me shows: The patient is seen in evaluated on morning rounds with the resident. This information is discussed with the clinical nurse practitioner. The patient continues to complain of pain out of proportion to examination. This is likely from previous oral medicine and resistance to the beneficial effects of narcotics. I do not wish to go up on her narcotics in consideration of respiratory suppression. We will continue to work with her to try and make her as comfortable as we can. She has no dysphagia. She is tolerating clear liquids. Zane Canchola MD FACS
[2017-04-13] MEDS: Ketorolac 15 MG/ML VIAL IVP SCH ×2 (00:13→05:38)
[2017-04-13] MEDS: Metoclopramide 10 MG/2 ML VIAL IVP SCH ×2 (00:13→05:37)
[2017-04-13] MEDS: *HR* OxyCODONE/APAP 5/325 TABLET PO PRN ×2 (02:59→10:45)
[2017-04-13] MEDS: Albuterol 2.5 MG/3 ML NEBULIZER IH SCH ×2 (04:48→11:02)
[2017-04-13 05:26] LABS: Basophils # 0.1 K/mcL (0.0-0.2); Basophils % 0.8 %; Eosinophils # 1.2 K/mcL (0.0-0.6); Eosinophils % 7.5 %; Hematocrit 32.8 % (35.3-44.9); Hemoglobin 11.1 g/dL (11.5-15.4); Immature Granulocytes % 0.6 % (0-4); Lymphocytes # 3.8 K/mcL (0.6-4.6); Lymphocytes % 24.2 %; Mean Corpuscular HGB Conc 33.8 g/dL (31.6-35.5); Mean Corpuscular Volume 91.6 fL (83.0-100.0); Mean Platelet Volume 8.7 fL (9.4-12.4); Monocytes # 1.4 K/mcL (0.0-1.3); Monocytes % 8.7 %; Platelet Count 535 K/mcL (140-400); Red Blood Count 3.58 M/mcL (3.82-4.97); Red Cell Distribution Width 13.2 % (11.5-14.5); Segmented Neutrophils % 58.2 %
[2017-04-13] MEDS: Pantoprazole 40 MG VIAL IVP SCH (05:35)
[2017-04-13] MEDS: *HR* Heparin 5,000 UNIT/ML VIAL SQ SCH (05:40)
[2017-04-13 08:58] VITALS: BP 123/80
--- NOTE | 2017-04-13 09:51 | Discharge Summary ---
<Beth Stevens L - Last Filed: 04/13/17 10:11> Date of Encounter: 04/13/17 Time of Encounter: 09:50 - Discharge Diagnosis (1) Status post Rona fundoplication Priority: Primary Status: Resolved (2) Status post hernia repair Priority: Primary Status: Resolved (3) Hypokalemia Priority: Secondary Status: Resolved (4) GERD (gastroesophageal reflux disease) Priority: Secondary Status: Acute Qualifiers: Esophagitis presence: esophagitis presence not specified Qualified Code(s) : K21.9 - Gastro-esophageal reflux disease without esophagitis (5) DVT prophylaxis Priority: Secondary Status: Resolved - Discharge Medications Prescriptions: Ondansetron ODT [Zofran ODT] 4 mg SL Q4HR #30 tab.rapdis Nicotine Patch [Nicoderm] 21 mg TD DAILY #30 patch.td24 OxyCODONE/APAP 5/325 [Percocet 5/325 MG] 1 each PO Q6H PRN #28 tablet PRN Reason: Pain (1-5) Polyethylene Glycol 3350 [MiraLAX Powder Bulk 17.9 Oz] 1 scoop PO DAILY #510 gm Home Medications: Omeprazole [PriLOSEC] 20 mg PO DAILY #30 cap 02/28/17 [Rx] Buspirone HCl [Buspar] 30 mg PO DAILY 03/22/17 [History] Ibuprofen [Motrin] 200 mg PO Q4HR PRN 03/22/17 [History] [place] Carbonate 600 mg PO BID 03/22/17 [History] Nicotine Patch [Nicoderm] 21 mg TD DAILY #30 patch.td24 04/13/17 [Rx] Ondansetron ODT [Zofran ODT] 4 mg SL Q4HR #30 tab.rapdis 04/13/17 [Rx] OxyCODONE/APAP 5/325 [Percocet 5/325 MG] 1 each PO Q6H PRN #28 tablet 04/13/17 [ Rx] Polyethylene Glycol 3350 [MiraLAX Powder Bulk 17.9 Oz] 1 scoop PO DAILY #510 gm 04/13/17 [Rx] Allergies/Adverse Reactions: 3 Allergy/AdvReac Type Severity Reaction Status Date / Time No Known Allergies Allergy Verified 04/08/17 11:57 General Surgery Exam Initial Vital Signs Temp Pulse Resp BP Pulse Ox 98.2 F 88 18 125/82 96 04/08/17 11:31 04/08/17 11:31 04/08/17 11:31 04/08/17 11:31 04/08/17 11:31 - General physical appearance no distress, moderate pain - Eyes normal ocular movement - ENT normal mucosa, atraumatic, normocephalic - Neck trachea midline, no venous distension - Respiratory normal expansion, normal respiratory effort, clear to percussion, clear to auscultation - Cardiovascular Cardiovascular exam: Present: RRR, 15, 16 - Abdomen Abdomen general surgery: Present: bowel sounds present, soft, tender (Expected postoperative; RUQ ecchymosis) Abdominal Tenderness: Present: diffusely Hernia: Present: none - Incision Incision: Present: clean and dry, intact - Integumentary Integumentary general surgery: Present: warm and dry, no abnormal pigmentation - Neurologic Present: CN 2-12 grossly intact, normal coordination, normal sensation - Musculoskeletal Present: normal gait, normal posture - Psychiatric Psychiatric general surgery: Present: A&Ox3, appropriate, oriented to person, oriented to place, oriented to time, speech is normal, memory intact Date of admission: 04/08/17 11:56 Primary care physician: PCP NONE Discharging clinician: Zane Stevens) Anticipated date of discharge: 04/13/17 - Patient Status Disposition: Home, Self-Care Condition: Good Functional capacity at discharge: independent ambulation Overall status at discharge: patient is progressing back to baseline - Discharge Instructions Instructions: Adult Open Rona Fundoplication (DC) Follow Up With: Zane Canchola MD [Partnered Physician] - 04/19/17 9:45 am Additional Instructions: General Instructions After Rona Surgery 1. No pushing, pulling, or lifting greater than 15 lbs for 6 weeks. 2. You may shower beginning today, but no tub baths, soaking, or swimming for 2 weeks. 3. You may resume driving when you are off narcotics and are safe to react in a car. 4. Take your ibuprofen every 4 hours. You may alternate this with a Percocet so that you have discomfort management every 4 hours. Take narcotics as directed. Do not take more narcotics then directed and do not share your narcotics with any other person. Do not drink alcohol while on narcotics. 5. Take stool softeners (Colace) or a water based laxative (Miralax) while taking narcotics. You may hold for loose stools. 6. Report any fevers greater than 100.5F, increase abdominal discomfort, drainage that looks like pus, increased redness or pain at the surgical site, or any vomiting. 7. Report any pain in the calves, shortness of breath, or rapid heartbeat. 8. Continue to take your heartburn medications until directed to stop. Do not stop them abruptly as this can cause symptoms of reflux. 9. Do not drink alcohol or carbonated beverages. 10. Do not deviate from the recommended Rona diet below. Doing so can affect your outcomes. 11. Do not smoke. Smoking can impair your healing. 30 days of nicotine patch has been provided. [facility] Diet After Rona Fundoplication Surgery This diet information is for patients who have recently had Rona Fundoplication Surgery to correct reflux disease or to repair various types of hernias, such as hiatal hernia and intrathoracic stomach. This diet may also be used for other gastrointestinal surgeries, such as Heller myotomy and repair of achalasia. The diet will help control diarrhea, excess gas and swallowing problems, which may occur after this type of surgery. Important Steps to Keep Your Stomach From Stretching Eat small, frequent meals (six to eight per day). This will help you consume the majority of the nutrients you need without causing your stomach to feel full or distended. Drinking large amounts of fluids with meals can stretch your stomach. You may drink fluids between meals as often as you like, but limit fluids to 1/2 cup (4 fluid ounces) with meals and one cup (8 fluid ounces) with snacks. Sit upright while eating, and stay upright for 30 minutes after each meal. [place] can help food move through your digestive tract. Do not lie down after eating. Sit upright for 2 hours after your last meal or snack of the day. Eat very slowly. Take your time when eating. Take small bites and chew your food well to tank house operator helper in swallowing and digestion. Avoid crusty breads and sticky, gummy foods, such as bananas, fresh doughy breads, rolls and doughnuts. These types of foods become sticky and difficult to swallow. Toasted breads tend to be better tolerated. Lastly, if you eat sweets, consume them at the end of your meal to avoid a group of symptoms referred to as dumping syndrome. This describes the rapid emptying of foods from the stomach to the small intestine. Sweetened beverages, candy and desserts move more rapidly and dump quickly into the intestines. This can cause symptoms of nausea, weakness, cold sweats, cramps, diarrhea and dizzy spells. Important Steps to Avoid Gas Do not drink through a straw, chew gum, or chew tobacco. These actions cause you to swallow air, which will produce excess gas in your stomach. Chew with your mouth closed and chew your food thoroughly. Avoid foods that cause stomach gas and distention. The foods include corn, dried beans, peas, lentils, onions, broccoli, cauliflower, and any food item from the cabbage family. Do not drink carbonated drinks, alcohol, citrus, or tomato products. What Will I Be Able To Eat and Drink After Surgery After Rona Fundoplication Surgery, your diet will be advanced slowly by your surgeon. Generally, you will be on a thin/clear liquid diet for the first 10 days. Then you will advance to the full liquid diet for 4 days and eventually to a Rona soft diet for 7 days. After any surgery, protein consumption is important for healing. To get enough protein, drink 3-4 [place] Instant Breakfast, Ensure, or equivalent daily. Reminder: Carbonated beverages (such as sodas, energy drinks, flavored carbonated water), and alcohol are not permitted for the 1st 6 to 8 weeks after surgery. After this time you may attempt to reintroduce them in small amounts. Please note: Dairy products such as milk, ice cream, and pudding may cause diarrhea in some people after surgery. You may need to avoid milk products. If so you may substitute them with lactose free beverages, such as soy, rice, lactate, or almond milk. Please be aware that each patient's tolerance to food is different. Your doctor will advance your diet depending on how well you progress after surgery. Thin Liquid Diet The first diet after Rona Fundoplication Surgery is the thin liquids diet. Follow this diet for postoperative days 1-10 {04/09-04/18}. Thin liquids include: Apple, Cranberry, or Grape Juice (no citrus juice) Chicken Broth Beef Broth Flavored Gelatin (Jell-O) Decaffeinated Tea or Coffee Popsicles or Romansh Ice Caffeinated Beverages Will Be Permitted Based upon Tolerance and at a later date Dairy if tolerated Thin Milkshakes (strawberry or vanilla flavored- No chocolate) Drink 3-4 [place] instant breakfast, Ensure, or equivalent daily. May be mixed with dairy for thin milkshakes Full Liquid Diet Follow this diet for postoperative days 11-14: {04/19-04/22}. Full liquid diet includes anything in the thin liquid diet plus: Milk: Dairy, Soy, Rice, and Bud (No Chocolate) Cream of Wheat, Cream of Rice, Grits Strained Creamed Soups (No Tomato or Broccoli) Vanilla and Neptune Flavored Ice Cream Sherbet Vanilla and Butterscotch Pudding (No Chocolate or Coconut) Continue 3-4 [place] Instant Breakfast, Ensure, or an Equivalent Daily. May be mixed with Dairy for Thin Milkshakes. Rona Soft Diet Follow this diet for postoperative days 15-20 {04/23- 04/29}. (If you are consuming enough protein, you may stop the protein supplements). Please note: You will need extra fluids throughout the day to meet your fluid needs. - Diet and Activity Activity: increase activity as tolerated Diet: other (Follow the Rona diet only. ) - Hospital Course Hospital course: Ms. Hu is a 41 year old female who presented for elective open repair of hiatal hernia and open Rona fundoplication on 04/08/[address] Canchola. POD#1 she reported abdominal pain. Cefazolin 2 g every 8 hours with continued in her discomfort was managed. She was started on a clear liquid diet. POD#2 she reported continued abdominal discomfort and dyspepsia. She also complained of difficulty breathing. Albuterol nebulizer treatments were added as well as continued oxygen titration. POD#3 dyspepsia and difficulty breathing resolved. Her discomfort was managed with IV Toradol and PRN Percocet. Stool softeners were began due to complaints of abdominal distention. POD #4 she is ambulating and voiding without difficulty. She is tolerating her thin liquid diet without vomiting. She has had a bowel movement and states that her abdominal distention has improved. She does report continued right upper quadrant discomfort that is consistent with an area of ecchymosis. Her incisions are clean, dry, and intact. We will begin discharge planning with follow-up in the office on April 19, 2017. She is again strongly encouraged smoking cessation and do not deviate from the diet recommendations. Time spent discussing smoking cessation with patient: 3 to 10 minutes - Time Spent with Patient Total time spent providing and/or coordinating discharge services: Less than 30 minutes Labs on day of discharge: Labs from last 24 hours 04/13/17 04:31 WBC 15.5 H RBC 3.58 L Hgb 11.1 L Hct 32.8 L MCV 91.6 MCH 31.0 MCHC 33.8 RDW 13.2 Plt Count 535 H MPV 8.7 L Immature Gran % 0.6 Seg Neutrophils % 58.2 Lymphocytes % 24.2 Monocytes % 8.7 Eosinophils % 7.5 Basophils % 0.8 Neutrophils # 9.0 H Lymphocytes # 3.8 Monocytes # 1.4 H Eosinophils # 1.2 H Basophils # 0.1 <JesikaZane T - Last Filed: 04/13/17 18:34> Date of Encounter: 04/13/17 General Surgery Exam Initial Vital Signs Temp Pulse Resp BP Pulse Ox 98.2 F 88 18 125/82 96 04/08/17 11:31 04/08/17 11:31 04/08/17 11:31 04/08/17 11:31 04/08/17 11:31 Date of admission: 04/08/17 11:56 Primary care physician: PCP NONE - Hospital Course Hospital course: Ms. Hu is a 41 year old female - Time Spent with Patient Total time spent providing and/or coordinating discharge services: Labs on day of discharge: Labs from last 24 hours 04/13/17 04:31 WBC 15.5 H RBC 3.58 L Hgb 11.1 L Hct 32.8 L MCV 91.6 MCH 31.0 MCHC 33.8 RDW 13.2 Plt Count 535 H MPV 8.7 L Immature Gran % 0.6 Seg Neutrophils % 58.2 Lymphocytes % 24.2 Monocytes % 8.7 Eosinophils % 7.5 Basophils % 0.8 Neutrophils # 9.0 H Lymphocytes # 3.8 Monocytes # 1.4 H Eosinophils # 1.2 H Basophils # 0.1 - Attending Attestation I have personally performed a face to face evaluation on this patient. I have reviewed and agree with the care plan. History and Exam by me shows: The patient is seen and evaluated with clinical nurse practitioner today. She is doing quite well however her pain control is marginal. I think she is appropriate for discharge. I will see her next week in the office to make sure she is progressing well. She is certainly tolerating diet well. Zane Canchola MD FACS
[2017-04-13] MEDS: Lithium Carbonate 300 MG CAPSULE PO SCH (10:45)
[2017-04-13] MEDS: Nicotine 21 MG PATCH.TD24 TD SCH (10:46)
== END 2017-04-13 12:34 | disposition home or self-care (01) | DRG 220 ==
LOC: SAMDAY 11:03 → 3ANU 11:56
PROVIDERS: ADMIT Surgery; ATTEND Surgery